=== PATIENT | female | born 1970 | race Caucasian/White ===

== ENCOUNTER → 2016-10-24 | Outpatient (CLI) | payer BC ==
[~2016-10-24] MED LIST: ASPI-391 PO; DESOTAB2 PO; IBUP-103 PO; LEVO112T2 PO
== END | disposition home or self-care (01) ==
LOC: C.LAB1850 16:40
PROVIDERS: ATTEND Internal Medicine
DX: E03.9 Hypothyroidism, unspecified (principal)

== ENCOUNTER → 2016-12-24 | Outpatient (CLI) | payer BC ==
--- NOTE | 2016-12-25 13:16 | MAMMOGRAPHY REPORT ---
BILATERAL DIGITAL SCREENING MAMMOGRAM TOMOSYNTHESIS WITH CAD: 12/24/2016 CLINICAL HISTORY: Routine screening. Patient has no complaints. TECHNIQUE: Breast tomosynthesis in addition to standard 2D mammography was performed. Current study was also evaluated with a Computer Aided Detection (CAD) system. COMPARISON: Comparison is made to exam dated: 01/25/2008. BREAST COMPOSITION: There are scattered areas of fibroglandular density in both breasts. FINDINGS: There is a stable circumscribed 14 mm mass in the lower inner quadrant of the right breast , that is unchanged in size dating back to the 48 20,008 mammogram, therefore likely benign. No new suspicious mass, architectural distortion or cluster of microcalcifications is seen. IMPRESSION: ACR BI-RADS CATEGORY 1: NEGATIVE There is no mammographic evidence of malignancy. A 1 year screening mammogram is recommended. The p atient will receive written notification of the results. Approximately 10% of breast cancers are not detected with mammography. A negative mammographic repor t should not delay biopsy if a clinically suggestive mass is present. Ofelia Johnson M.D. ay/:12/24/2016 15:28:51 Forensic Audit Expert: Kenya ANTHONY)([place]), [facility] letter sent: Normal 1/2 BI-RADS Code: ACR BI-RADS Category 1: Negative
== END | disposition home or self-care (01) ==
LOC: C.MAMM 14:34
PROVIDERS: ATTEND Internal Medicine
DX: Z12.31 Encounter for screening mammogram for malignant neoplasm of breast (principal)

== ENCOUNTER → 2017-08-24 | Outpatient (CLI) | payer BC | END | disposition home or self-care (01) | LOC: C.PAPS 13:50 | PROVIDERS: ATTEND Obstetrics & Gynecology | DX: Z01.419 Encounter for gynecological examination (general) (routine) without abnormal findings (principal) ==

== ENCOUNTER → 2017-12-31 | Outpatient (CLI) | payer OTHER ==
--- NOTE | 2017-12-31 15:15 | MAMMOGRAPHY REPORT ---
BILATERAL DIGITAL SCREENING MAMMOGRAM TOMOSYNTHESIS WITH CAD: 12/31/2017 CLINICAL HISTORY: Routine screening. Patient has no complaints. TECHNIQUE: Breast tomosynthesis in addition to standard 2D mammography was performed. Current study was also evaluated with a Computer Aided Detection (CAD) system. COMPARISON: Comparison is made to exams dated: 12/24/2016 mammogram - [facility] [address], 01/25/2008, and 01/25/2008. BREAST COMPOSITION: There are scattered areas of fibroglandular density in both breasts. FINDINGS: No suspicious masses, calcifications, or areas of architectural distortion are noted in ei ther breast. There has been no significant interval change compared to prior exams. Circumscribed be nign-appearing mass in the right lower inner quadrant is stable. A linear scar marker denotes a scar on the left superior breast. IMPRESSION: ACR BI-RADS CATEGORY 2: BENIGN There is no mammographic evidence of malignancy. A 1 year screening mammogram is recommended. The pa tient will receive written notification of the results. Approximately 10% of breast cancers are not detected with mammography. A negative mammographic report should not delay biopsy if a clinically suggestive mass is present. Hetal Chaves M.D. /:12/31/2017 07:38:30 System Architect: Kenya Lowery, [facility] [address] letter sent: Normal 1/2 BI-RADS Code: ACR BI-RADS Category 2: Benign
== END | disposition home or self-care (01) ==
LOC: C.MAMM 07:14
PROVIDERS: ATTEND Obstetrics & Gynecology
DX: Z12.31 Encounter for screening mammogram for malignant neoplasm of breast (principal)

== ENCOUNTER → 2018-01-21 | Outpatient (CLI) | payer OTHER | END | disposition home or self-care (01) | LOC: C.LABSPEC 12:09 | PROVIDERS: ATTEND Nurse Practitioner Adult Health | DX: R21 Rash and other nonspecific skin eruption (principal); L03.90 Cellulitis, unspecified ==

== ENCOUNTER 2019-11-15 17:22 | Inpatient (IN) ==
[2019-11-15] MEDS ORDERED: DiphenhydrAMINE HCL 50 MG/ML VIAL IV STA (19:49)
[2019-11-15 20:25] LABS: Basophils # (auto) 0.02 K/uL (0-0.2); Basophils % (auto) 0.2 %; Eosinophils # (auto) 0.13 K/uL (0-0.5); Eosinophils % (auto) 1.1 %; Hemoglobin 13.1 g/dL (12.0-16.0); Immature Granulocytes # (auto) 0.05 K/uL (0.00-0.02); Immature Granulocytes % (auto) 0.4 %; Lymphocytes # (auto) 3.32 K/uL (1.2-3.4); Lymphocytes % (auto) 29.3 %; Mean Corpuscular Hemoglobin 27.8 pg (25-34); Mean Corpuscular Hgb Conc 33.6 g/dL (32-36); Mean Corpuscular Volume 82.6 fL (80-100); Mean Platelet Volume 9.8 fL (7.4-10.4); Monocytes # (auto) 0.58 K/uL (0.11-0.59); Monocytes % (auto) 5.1 %; Neutrophils # (auto) 7.23 K/uL (1.4-6.5); Neutrophils % (auto) 63.9 %; Platelet Count 305 K/uL (130-400); RDW Coefficient of Variation 14.5 % (11.5-14.5); RDW Standard Deviation 43.6 fL (36.4-46.3); Red Blood Count 4.72 M/uL (4.2-5.4); White Blood Count 11.33 K/uL (4.8-10.8)
[2019-11-15 20:55] LABS: Albumin Level 3.4 gm/dl (3.4-5.0); BUN Creatinine Ratio 12.4 (10-20); Calcium 9.3 mg/dl (8.5-10.1); Creatinine Clr Calc Pharmacy 101.3 ml/min; Est GFR (African American) 108.3; Est GFR (Non-African American) 93.4; Potassium 3.6 mmol/L (3.5-5.1)
[2019-11-15 20:58] LABS: Albumin Globulin Ratio 0.8 (0.9-2); Bilirubin,Total 0.7 mg/dl (0.2-1); Globulin 4.4 gm/dl (2.5-4.0); Total Protein 7.8 gm/dl (6.4-8.2)
--- NOTE | 2019-11-15 21:49 | Emergency Department Note ---
ED Visit Note I assisted Dr. Turcios with the care of this patient . Resident Activity Tracking Resident Involvement: Resident Care Provided Care Provided: Adult ED : Leukocytosis Qualifiers: Leukocytosis type: unspecified Qualified Code(s): D72.829 - Elevated white blood cell count, unspecified
--- NOTE | 2019-11-15 21:58 | Ultrasound Report ---
BILIARY ULTRASOUND CLINICAL HISTORY: epigastric and RUQ pain COMPARISON STUDY: No previous studies for comparison. FINDINGS: The pancreas appears sonographically normal. The liver is of increased echogenicity, nonspe cific finding most often seen in hepatic steatosis. There is no right-sided hydronephrosis. The gallb ladder contains calculi and sludge. There is no gallbladder wall thickening. The technologist reports a positive sonographic Villalobos sign. The common bile duct is minimally dilated measuring 8 mm. If the re is clinical concern over the presence of acute cholecystitis, a nuclear medicine hepatobiliary eduardo dy could be obtained in follow-up to assess cystic duct patency IMPRESSION: 1. Gallstones and sludge. Technologist reports a positive sonographic Villalobos sign. 2. Mild dilatation of the common bile duct which measures 8 mm 3. Suspected hepatic steatosis 4. A nuclear medicine hepatobiliary study could be obtained in follow-up to assess cystic duct patenc y as deemed clinically necessary. ACT 112: Negative or not required by law. Electronically signed by: Benoit Baker M.D. 11/15/2019 9:57 PM
[2019-11-15] MEDS ORDERED: PIPERACILLIN/TAZOBACTAM 3.375 GM in DEXTROSE 5% 100 ML/100 ML BAG IV STA (22:02)
[2019-11-15] MEDS ORDERED: PIPERACILL/TAZOBAC CONSULT ACTIVE PRN (22:02)
[2019-11-15] MEDS ORDERED: KETOROLAC TROMETHAMINE 15 MG/ML VIAL IV STA (22:25)
--- NOTE | 2019-11-15 22:38 | Emergency Department Note ---
Entered by Linda Davila acting as a scribe for History of Present Illness General Chief complaint: GI Assessment Stated complaint: GALLBLADDER PROBLEMS Time Seen by Provider: 11/15/19 19:33 Source: patient History of Present Illness Onset (ago): week(s) (5-6) Location: abdomen Pain Consistency: + other (episodes) Maximum Pain Intensity: 0 Quality: + other (gallbladder attacks) Associated symptoms: + denies other symptoms (lightheadedness, constipation, difficulty urinating), + headaches and + other (generalized itching, abdominal pain, diarrhea); no fever/chills The patient is a 49 year old female who presents to the Emergency Room with complaints of episodes of gallbladder attacks beginning 5-6 weeks ago. The patient reports approximately 6 attacks and notes the most recent occurred 2 days ago. The patient states the attacks start 2 hours after eating. She reports burning and abdominal pain followed by light colored diarrhea. The patient denies any pain currently, but reports generalized itching. She reports a slight headache. She denies lightheadedness, fever, chills, constipation, and difficulty urinating. She states she has been taking ibuprofen for the pain. She reports a history of hypothyroidism. Home Medications Home Medications Medication Instructions Recorded Confirmed Type desogestrel 0.15 mg-ethinyl 1 tab PO DAILY #84 tab 10/13/19 11/15/19 Rx estradiol 0.03 mg tablet levothyroxine 200 mcg tablet 200 mcg PO DAILY #90 tab 11/11/19 11/15/19 Rx Allergies Allergy/AdvReac Type Severity Reaction Status Date / Time adhesive Allergy Unknown RED SKIN Verified 11/15/19 22:28 Sulfa (Sulfonamide Allergy Unknown ITCHY RASH Verified 11/15/19 22:28 Antibiotics) Past Med/Surg History Medical History Dysmetabolic syndrome X (Acute) History of anemia (Acute) Hypothyroidism (Acute) Mitral regurgitation (Acute) Obesity (Acute) Palpitations (Acute) Submucous leiomyoma of uterus (Acute) Syncope and collapse (Acute) Surgical History S/P section S/P loop electrosurgical excision procedure S/P tonsillectomy Family History Father Lung cancer Grandmother Ovarian cancer Social History Preferred Language: Palestinian Communication Ability: Effective Visual Impairment: No Limitations Hearing Ability: Normal Timber Surveyor Required: No Beliefs That Will Affect Care: None marital status: Current Living Situation: Significant Other Other Information That Helps Us Care for You: No Feels Safe at Home: Yes Safety Concerns: Feels Safe At This Time Smoking Status: Never smoker Second Hand Exposure: No ; Hx Alcohol Use: No Hx Substance Use: No Seatbelt Use: always Review of Systems See HPI for pertinent positives & negatives. and A total of 10 systems reviewed and were otherwise negative Physical Exam Vital Signs Vital Signs - 24 hr 11/15/19 17:31 11/15/19 20:00 11/15/19 20:30 Temperature 37 C Temperature Source Oral Pulse Rate 90 80 Pulse Rate [Apical] 73 Pulse Rate from SpO2 Sensor Pulse Rhythm Regular Pulse Strength Normal Respiratory Rate 20 14 Respiratory Effort / Characteristics Non-Labored Spontaneous Non-Labored Spontaneous Respiratory Depth Normal Normal Respiratory Pattern Regular Regular Blood Pressure 192/124 H Blood Pressure [Right Arm] 152/117 H Blood Pressure Mean 146 Blood Pressure Mean [Right Arm] 128 Blood Pressure Position Sitting Pulse Oximetry 100 99 100 Oxygen Delivery Method Room Air Room Air Room Air Sepsis Recent Fever Within 48 Hours No Sepsis Action Taken by Nursing No Action Required 11/15/19 20:31 11/15/19 20:35 11/15/19 21:00 Temperature Temperature Source Pulse Rate 93 H 87 79 Pulse Rate [Apical] Pulse Rate from SpO2 Sensor 94 H 87 79 Pulse Rhythm Pulse Strength Respiratory Rate 34 H 28 H 15 Respiratory Effort / Characteristics Respiratory Depth Respiratory Pattern Blood Pressure 152/117 H 179/113 H Blood Pressure [Right Arm] Blood Pressure Mean 123 124 Blood Pressure Mean [Right Arm] Blood Pressure Position Pulse Oximetry 100 97 100 Oxygen Delivery Method Sepsis Recent Fever Within 48 Hours Sepsis Action Taken by Nursing 11/15/19 21:01 11/15/19 22:02 Temperature Temperature Source Pulse Rate 77 Pulse Rate [Apical] Pulse Rate from SpO2 Sensor 77 79 Pulse Rhythm Pulse Strength Respiratory Rate 16 18 Respiratory Effort / Characteristics Respiratory Depth Respiratory Pattern Blood Pressure 165/95 H Blood Pressure [Right Arm] Blood Pressure Mean 113 Blood Pressure Mean [Right Arm] Blood Pressure Position Pulse Oximetry 100 98 Oxygen Delivery Method Sepsis Recent Fever Within 48 Hours Sepsis Action Taken by Nursing GENERAL: Patient is in no acute distress. HEENT: No acute trauma, normocephalic atraumatic, mucous membranes moist, no nasal congestion, no scleral icterus. NECK: No stridor, no adenopathy, no meningismus, trachea is midline. LUNGS: Clear to auscultation bilaterally, no wheeze, no rhonchi, breath sounds equal. HEART: Without murmurs gallops or rubs, regular rate and rhythm. ABDOMEN: Soft, nontender, bowel sounds positive, no hernias, no peritonitis. EXTREMITIES: No cyanosis or edema, full range of motion of all the joints without pain or difficulty, no signs for acute trauma. NEUROLOGIC: Oriented x 3, no acute motor or sensory deficits, no focal weakness. SKIN: Slight yellowing to the skin. No rash or diaphoresis. Course Course 1929: Past medical records reviewed. The patient was evaluated in room B05 by the resident under my supervision. A complete history and physical exam was performed. 1999: Past medical records reviewed. The patient was evaluated in room B05 by me. A complete history and physical exam was performed. 2229: Upon reevaluation, I discussed findings and results with the patient. She verbalized agreement of the treatment plan. I spoke with Dr. Gomez of the [facility] Hospitalist Service. The patient will be evaluated for further management and care. Administered Medications Famotidine 20 mg/ Syringe 5 mls @ 2.5 mls/min IV BID ALVERTO Stop: 12/15/19 23:25 Last Admin: 11/16/19 00:01 Dose: 2.5 mls/min Documented by: [id number] Lactated Ringer's (Lr) 1,000 mls @ 125 mls/hr IV .Q8H ALVERTO Stop: 12/15/19 23:25 Last Admin: 11/15/19 23:57 Dose: 125 mls/hr Documented by: [id number] Discontinued Medications Diphenhydramine HCl (Benadryl) 25 mg IV NOW STA Stop: 11/15/19 19:50 Last Admin: 11/15/19 20:14 Dose: 25 mg Documented by: [id number] Piperacillin Sod/Tazobactam (Sod 3.375 gm/ Dextrose) 100 ml in 115 mls @ 230 mls/hr IV NOW STA Stop: 01/28/20 22:31 Last Infusion: 11/15/19 22:50 Dose: 0 mls/hr Documented by: [id number] Admin: 11/15/19 22:18 Dose: 230 mls/hr Documented by: [id number] Ketorolac Tromethamine (Toradol) 15 mg IV NOW STA Stop: 11/15/19 22:26 Last Admin: 11/15/19 22:50 Dose: 15 mg Documented by: [id number] Medical Decision Making Differential Diagnosis Differential diagnosis:biliary colic, elevated bilirubin, pancreatitis, renal or liver failure, allergic reaction, electrolyte imbalance, dehydration Medical Records Attestation: I reviewed the patient's medical records. Home Medications Current Medication List: was personally reviewed by me Laboratory Data Attestation: I reviewed the patient's lab results. Result diagrams: 11/15/19 20:06 11/15/19 20:06 Lab Results 11/15/19 11/15/19 Range/Units 20:06 20:06 WBC 11.33 H (4.8-10.8) K/uL RBC 4.72 (4.2-5.4) M/uL Hgb 13.1 (12.0-16.0) g/dL Hct 39.0 (37-47) % MCV 82.6 (80-100) fL MCH 27.8 (25-34) pg MCHC 33.6 (32-36) g/dL RDW Std Deviation 43.6 (36.4-46.3) fL RDW Coeff of George 14.5 (11.5-14.5) % Plt Count 305 (130-400) K/uL MPV 9.8 (7.4-10.4) fL Immature Gran % (Auto) 0.4 % Neut % (Auto) 63.9 % Lymph % (Auto) 29.3 % Prairie % (Auto) 5.1 % Eos % (Auto) 1.1 % Baso % (Auto) 0.2 % Immature Gran # (Auto) 0.05 H (0.00-0.02) K/uL Neut # (Auto) 7.23 H (1.4-6.5) K/uL Lymph # (Auto) 3.32 (1.2-3.4) K/uL Prairie # (Auto) 0.58 (0.11-0.59) K/uL Eos # (Auto) 0.13 (0-0.5) K/uL Baso # (Auto) 0.02 (0-0.2) K/uL Sodium 136 (136-145) mmol/L Potassium 3.6 (3.5-5.1) mmol/L Chloride 105 (98-107) mmol/L Carbon Dioxide 24 (21-32) mmol/L Anion Gap 7.0 (3-11) BUN 9 (7-18) mg/dl Creatinine 0.76 (0.6-1.2) mg/dl Est Cr Clr Drug Dosing 101.3 ml/min Est GFR ( Amer) 108.3 Est GFR (Non-Af Amer) 93.4 BUN/Creatinine Ratio 12.4 (10-20) Glucose 104 H (70-99) mg/dl Calcium 9.3 (8.5-10.1) mg/dl Total Bilirubin 0.7 (0.2-1) mg/dl AST 159 H (15-37) U/L ALT 187 H (12-78) U/L Alkaline Phosphatase 190 H (45-117) U/L Total Protein 7.8 (6.4-8.2) gm/dl Albumin 3.4 (3.4-5.0) gm/dl Globulin 4.4 H (2.5-4.0) gm/dl Albumin/Globulin Ratio 0.8 L (0.9-2) Lipase 106 (73-393) U/L Imaging Data Radiologist's Impression: Radiology results as stated below per my review and the radiologist's interpretation: BILIARY ULTRASOUND CLINICAL HISTORY: epigastric and RUQ pain COMPARISON STUDY: No previous studies for comparison. FINDINGS: The pancreas appears sonographically normal. The liver is of increased echogenicity, nonspecific finding most often seen in hepatic steatosis. There is no right-sided hydronephrosis. The gallbladder contains calculi and sludge. There is no gallbladder wall thickening. The technologist reports a positive sonographic Villalobos sign. The common bile duct is minimally dilated measuring 8 mm. If there is clinical concern over the presence of acute cholecystitis, a nuclear medicine hepatobiliary study could be obtained in follow-up to assess cystic duct patency IMPRESSION: 1. Gallstones and sludge. Technologist reports a positive sonographic Villalobos sign. 2. Mild dilatation of the common bile duct which measures 8 mm 3. Suspected hepatic steatosis 4. A nuclear medicine hepatobiliary study could be obtained in follow-up to assess cystic duct patency as deemed clinically necessary. ACT 112: Negative or not required by law. Electronically signed by: Benoit Baker M.D. 11/15/2019 9:57 PM Blood Pressure Blood Pressure Findings: Elevated blood pressure Blood Pressure Disposition: further management by hospitalist MDM Narrative There is a mild leukocytosis, this could be consistent with infection. Patient has a normal hemoglobin. There is a normal platelet count. No significant electrolyte abnormality or kidney failure. Liver enzyme elevations were noted although, the bilirubin was normal. No evidence for pancreatitis. Gallbladder ultrasound shows gallstones and a mildly dilated common bile duct. On exam, there was no significant abdominal pain. The patient was not febrile or toxic. The patient presents with itching and some intermittent abdominal pain with eating over the last few weeks. Work-up does show liver enzyme elevation, gallstones and a common bile duct dilatation. I do think a hospital stay is warranted. Patient is likely going to require a cholecystectomy, possibly an ERCP. The patient did receive IV Zosyn as antibiotic coverage. She was given IV Benadryl for itching, IV Toradol for pain. Case management has been involved. Patient is aware of all her findings, the hospitalist was consulted. Impression & Plan Biliary colic, Liver enzyme elevation, Itching, Leukocytosis Discharge Plan Visit Data *Final* Discharge Date/Time: 11/15/19 23:08 Chief Complaint: GI Assessment Stated Complaint: GALLBLADDER PROBLEMS ED Provider: Cain Turcios ED Midlevel Provider: Abhishek Alejandro Discharge Problem: Biliary colic, Liver enzyme elevation, Itching, Leukocytosis Patient Disposition: Being Evaluated by Hospitalist Discharge Instructions Interventions: ED Discharge Assessment Last Done: 11/15/19 23:08 Discharge Problem: Leukocytosis Qualifiers: Leukocytosis type: unspecified Qualified Code(s): D72.829 - Elevated white bloo d cell count, unspecified The madiibdre's documentation has been prepared under my direction and personally reviewed by me in its entirety. I confirm that the note above accurately reflects all work, treatment, procedures, and medical decision making performed by me.
--- NOTE | 2019-11-15 23:20 | History & Physical Report ---
Date of Service November 15, 2019 Assessment & Plan (1) Biliary colic: Obs GMF Pain and nausea control IV Zosyn LR @125 Surgery consult MRCP DVT prophylaxis = SCDs and Lovenox. (2) Cholelithiasis: Symptomatic. (3) Hypothyroidism: Continue Levothyroxine. History of Present Illness 49 y/o female presented to the ED with post-prandial epigastric to right upper quadrant pain and associated nausea. She reports having had 6 similar episodes over the past 5 weeks. No F/C, chest pain, SOB, cough, dysuria, or vomiting. She does report intermittent diarrhea as well. Primary Care Provider: Tien Hagen MD Allergies Allergy/AdvReac Type Severity Reaction Status Date / Time adhesive Allergy Unknown RED SKIN Verified 11/15/19 22:28 Sulfa (Sulfonamide Allergy Unknown ITCHY RASH Verified 11/15/19 22:28 Antibiotics) Home Medications Home Medications Medication Instructions Recorded Confirmed Type desogestrel 0.15 mg-ethinyl 1 tab PO DAILY #84 tab 10/13/19 11/15/19 Rx estradiol 0.03 mg tablet levothyroxine 200 mcg tablet 200 mcg PO DAILY #90 tab 11/11/19 11/15/19 Rx Past Med/Surg History Medical History Dysmetabolic syndrome X (Acute) History of anemia (Acute) Hypothyroidism (Acute) Mitral regurgitation (Acute) Obesity (Acute) Palpitations (Acute) Submucous leiomyoma of uterus (Acute) Syncope and collapse (Acute) Surgical History S/P section S/P loop electrosurgical excision procedure S/P tonsillectomy Family History Father Lung cancer Grandmother Ovarian cancer Social History Preferred Language: Vincentian Communication Ability: Effective Visual Impairment: No Limitations Hearing Ability: Normal Dextrine Mixer Required: No Beliefs That Will Affect Care: None marital status: Current Living Situation: Significant Other Other Information That Helps Us Care for You: No Feels Safe at Home: Yes Safety Concerns: Feels Safe At This Time Smoking Status: Never smoker Second Hand Exposure: No ; Hx Alcohol Use: No Hx Substance Use: No Seatbelt Use: always Review of Systems Review of Systems: All systems reviewed & are unremarkable except as noted in HPI & below Physical Exam Physical Exam: General- adult female, NAD Head- atraumatic Eyes- PERRL, EOMI, anicteric ENT- oropharynx clear Neck- supple, no JVD, no adenopathy, no thyromegaly. Lungs- CTA b/l no R/R/W. Heart- regular rhythm; no murmur, no gallop, no rub appreciated Abdomen- normal bowel sounds, soft, Mild tenderness to palpation RUQ. Extremities- no pretibial edema, no calf tenderness; peripheral pulses intact Neuro- alert, oriented x 3; PERRL, EOMI; business unit manager II-XII grossly intact, non-focal. Skin- warm & dry Results & Data Vital Signs (Past 12 Hours) Vital Signs Temp Pulse Pulse Resp BP BP Pulse Ox 11/15/19 23:08 80 18 174/118 H 95 11/15/19 22:02 18 165/95 H 98 11/15/19 21:01 77 16 100 11/15/19 21:00 79 15 179/113 H 100 11/15/19 20:35 87 28 H 97 11/15/19 20:31 93 H 34 H 152/117 H 100 11/15/19 20:30 73 14 152/117 H 100 11/15/19 20:00 80 99 11/15/19 17:31 37 C 90 20 192/124 H 100 Laboratory Results Laboratory Results WBC 11.33 K/uL (4.8-10.8) H 11/15/19 20:06 RBC 4.72 M/uL (4.2-5.4) 11/15/19 20:06 Hgb 13.1 g/dL (12.0-16.0) 11/15/19 20:06 Hct 39.0 % (37-47) 11/15/19 20:06 MCV 82.6 fL (80-100) 11/15/19 20:06 MCH 27.8 pg (25-34) 11/15/19 20:06 MCHC 33.6 g/dL (32-36) 11/15/19 20:06 RDW Std Deviation 43.6 fL (36.4-46.3) 11/15/19 20:06 RDW Coeff of George 14.5 % (11.5-14.5) 11/15/19 20:06 Plt Count 305 K/uL (130-400) 11/15/19 20:06 MPV 9.8 fL (7.4-10.4) 11/15/19 20:06 Immature Gran % (Auto) 0.4 % 11/15/19 20:06 Neut % (Auto) 63.9 % 11/15/19 20:06 Lymph % (Auto) 29.3 % 11/15/19 20:06 Johnson % (Auto) 5.1 % 11/15/19 20:06 Eos % (Auto) 1.1 % 11/15/19 20:06 Baso % (Auto) 0.2 % 11/15/19 20:06 Immature Gran # (Auto) 0.05 K/uL (0.00-0.02) H 11/15/19 20:06 Neut # (Auto) 7.23 K/uL (1.4-6.5) H 11/15/19 20:06 Lymph # (Auto) 3.32 K/uL (1.2-3.4) 11/15/19 20:06 Johnson # (Auto) 0.58 K/uL (0.11-0.59) 11/15/19 20:06 Eos # (Auto) 0.13 K/uL (0-0.5) 11/15/19 20:06 Baso # (Auto) 0.02 K/uL (0-0.2) 11/15/19 20:06 Sodium 136 mmol/L (136-145) 11/15/19 20:06 Potassium 3.6 mmol/L (3.5-5.1) 11/15/19 20:06 Chloride 105 mmol/L (98-107) 11/15/19 20:06 Carbon Dioxide 24 mmol/L (21-32) 11/15/19 20:06 Anion Gap 7.0 (3-11) 11/15/19 20:06 BUN 9 mg/dl (7-18) 11/15/19 20:06 Creatinine 0.76 mg/dl (0.6-1.2) 11/15/19 20:06 Est Cr Clr Drug Dosing 101.3 ml/min 11/15/19 20:06 Est GFR ( Amer) 108.3 11/15/19 20:06 Est GFR (Non-Af Amer) 93.4 11/15/19 20:06 BUN/Creatinine Ratio 12.4 (10-20) 11/15/19 20:06 Glucose 104 mg/dl (70-99) H 11/15/19 20:06 Calcium 9.3 mg/dl (8.5-10.1) 11/15/19 20:06 Total Bilirubin 0.7 mg/dl (0.2-1) 11/15/19 20:06 AST 159 U/L (15-37) H 11/15/19 20:06 ALT 187 U/L (12-78) H 11/15/19 20:06 Alkaline Phosphatase 190 U/L (45-117) H 11/15/19 20:06 Total Protein 7.8 gm/dl (6.4-8.2) 11/15/19 20:06 Albumin 3.4 gm/dl (3.4-5.0) 11/15/19 20:06 Globulin 4.4 gm/dl (2.5-4.0) H 11/15/19 20:06 Albumin/Globulin Ratio 0.8 (0.9-2) L 11/15/19 20:06 Lipase 106 U/L (73-393) 11/15/19 20:06 Diagnostic Findings [facility], [place] [phone] Ultrasound Report Patient: AJ TAVERASdmit Date: 11/15/19 MR#: [id number]: Laurie DALY Acct ID:[id number]: Date: 1970[facility] Zip: [place] [address] Age: 49Location: ED Sex: F Room/Bed: Att Phy:Diagnosis: GALLBLADDER PROBLEMS Loraine Phy: RV. Rakan, MDService Date: 11/15/19 Fam Phy:Interpreting Phy: Benoit Baker MD Admit Phy: Ordering Phy: Abhishek Alejandro MD cc: ~ BILIARY ULTRASOUND CLINICAL HISTORY: epigastric and RUQ pain COMPARISON STUDY: No previous studies for comparison. FINDINGS: The pancreas appears sonographically normal. The liver is of increased echogenicity, nonspecific finding most often seen in hepatic steatosis. There is no right-sided hydronephrosis. The gallbladder contains calculi and sludge. There is no gallbladder wall thickening. The technologist reports a positive sonographic Villalobos sign. The common bile duct is minimally dilated measuring 8 mm. If there is clinical concern over the presence of acute cholecystitis, a nuclear medicine hepatobiliary study could be obtained in follow-up to assess cystic duct patency IMPRESSION: 1. Gallstones and sludge. Technologist reports a positive sonographic Villalobos sign. 2. Mild dilatation of the common bile duct which measures 8 mm 3. Suspected hepatic steatosis 4. A nuclear medicine hepatobiliary study could be obtained in follow-up to assess cystic duct patency as deemed clinically necessary. ACT 112: Negative or not required by law. Electronically signed by: Benoit Baker M.D. 11/15/2019 9:57 PM Dictated: 11/15/192154 Transcribed: 11/15/192154 Code Status & VTE Plan VTE Prophylaxis Plan VTE Prophylaxis will be ordered: Yes PG Care Time/CCT Total # of Minutes Spent Total Time Spent: 60 Total Time Spent with Patient: Total time spent is greater than 50% in coordination of care (as documented) at patient's floor/unit and/or counseling patient: Coding Level of Care Code 10233 OBS Care - Level 3 Diagnoses Biliary colic K80.50 Cholelithiasis K80.20 Hypothyroidism E03.9
[2019-11-15] MEDS ORDERED: HydrALAZINE HCL 20 MG/ML VIAL IV PRN (23:26)
[2019-11-15] MEDS ORDERED: MoRPHine SULFATE 4 MG/ML 1 ML CARP\\VIAL IV PRN (23:26)
[2019-11-15] MEDS ORDERED: MoRPHine SULFATE 2 MG/ML CARP IV PRN (23:26)
[2019-11-15] MEDS: LACTATED RINGER'S 1,000 ML IV SCH (23:57)
[2019-11-16] MEDS: FAMOTIDINE 20 MG in SYRINGE 3 ML IV SCH ×2 (00:01→09:38)
[2019-11-16] MEDS: PIPERACILLIN/TAZOBACTAM 4.5 GM in DEXTROSE 5% 100 ML IV SCH ×2 (03:05→09:58)
[2019-11-16] MEDS: LEVOTHYROXINE SODIUM 200 MCG TABLET PO SCH (05:25)
[2019-11-16] MEDS: KETOROLAC TROMETHAMINE 15 MG/ML VIAL IV PRN (05:27)
[2019-11-16 05:47] LABS: Hematocrit (blood only) 33.7 % (37-47); Hemoglobin 11.3 g/dL (12.0-16.0); Mean Corpuscular Hemoglobin 27.4 pg (25-34); Mean Corpuscular Hgb Conc 33.5 g/dL (32-36); Mean Corpuscular Volume 81.6 fL (80-100); Mean Platelet Volume 9.9 fL (7.4-10.4); Platelet Count 226 K/uL (130-400); RDW Coefficient of Variation 14.6 % (11.5-14.5); RDW Standard Deviation 43.8 fL (36.4-46.3); Red Blood Count 4.13 M/uL (4.2-5.4)
[2019-11-16 06:28] LABS: Albumin Level 2.6 gm/dl (3.4-5.0); BUN Creatinine Ratio 10.6 (10-20); Bilirubin Direct 0.1 mg/dl (0-0.2); Calcium 8.8 mg/dl (8.5-10.1); Creatinine Clr Calc Pharmacy 88.4 ml/min; Est GFR (African American) 93.2; Est GFR (Non-African American) 80.4; Potassium 3.6 mmol/L (3.5-5.1)
[2019-11-16 06:37] LABS: Albumin Globulin Ratio 0.7 (0.9-2); Bilirubin,Total 0.7 mg/dl (0.2-1); Globulin 3.6 gm/dl (2.5-4.0); Total Protein 6.2 gm/dl (6.4-8.2)
--- NOTE | 2019-11-16 07:22 | Magnetic Resonance Report ---
MR MRCP HISTORY: 49 years-old Female Dilated CBD, cholelithiasis acute right upper quadrant abdominal pain COMPARISON: Right upper quadrant abdominal ultrasound 11/15/2019 TECHNIQUE: MRCP was obtained without the use of IV contrast according to institutional protocol FINDINGS: Risk Lead localizer images demonstrate no gross abnormality of the utilized pelvis or lower chest. Lung b ases appear clear. The liver is enlarged. Spleen, pancreas and adrenal glands are unremarkable. Unrem arkable kidneys without hydronephrosis. Aorta and IVC are unremarkable. No adenopathy or bowel dilati on. No abdominal free fluid. Cholelithiasis with gallstones measuring up to 1.6 cm. Tiny foci of sludge versus gallstones are note d within the gallbladder neck. Mild distention of the gallbladder measures up to 6.0 cm in length. Th ere is no intrahepatic or extrahepatic biliary ductal dilation. No pericholecystic fluid. Common bile duct is normal measuring up to 4 mm. No pancreatic ductal dilation or evidence of pancreatic divisum . No definite choledocholithiasis. IMPRESSION: 1. Cholelithiasis without evidence of acute cholecystitis or choledocholithiasis. 2. No biliary ductal dilation. ACT 112: Negative or not required by law. The above report was generated using voice recognition software. It may contain grammatical, syntax o r spelling errors. Electronically signed by: Bashir Alarcon M.D. 11/16/2019 7:20 AM
[2019-11-16] MEDS ORDERED: ENOXAPARIN INJ 40 MG/0.4 ML SYR SQ SCH (08:00)
--- NOTE | 2019-11-16 09:16 | Surgery Consultation ---
Date of Consultation November 16, 2019 Assessment & Plan (1) Cholelithiasis: No evidence of acute cholecystitis but has had several attacks and large gallstone. Mild AST/ALT elevations, MRCP was negative. She would like to proceed with laparoscopic cholecystectomy, will plan for possible cholangiogram or liver biopsy depending on LFT trend. Plan for OR , will repeat AM labs. Seen with Dr. Heredia. as above. has had about 5 post prandial "attacks" which are c/w gallbladder etiology. would prefer to have this admission. discussed possible liver bx as well. We discussed bleeding, infection, injury to a bile duct or bile leaks, DVT, PE, CA, CVA, injury to other organs such as small bowel liver etc. Following all this I answered her questions. We will plan on laparoscopic cholecystectomy possible liver biopsy tomorrow. History of Present Illness Attending Physician: Sampson Robertson Jazielantonilincoln History of Present Illness 49 y/o female with epigastric pain ("burning") Thursday, has had several attacks in the past few weeks. She had generalized itching yesterday and was referred to the ED. Some nausea, no vomiting. She feels better this morning. Allergies Allergy/AdvReac Type Severity Reaction Status Date / Time adhesive Allergy Unknown RED SKIN Verified 11/15/19 22:28 Sulfa (Sulfonamide Allergy Unknown ITCHY RASH Verified 11/15/19 22:28 Antibiotics) Home Medications Home Medications Medication Instructions Recorded Confirmed Type desogestrel 0.15 mg-ethinyl 1 tab PO DAILY #84 tab 10/13/19 11/15/19 Rx estradiol 0.03 mg tablet levothyroxine 200 mcg tablet 200 mcg PO DAILY #90 tab 11/11/19 11/15/19 Rx Patient History Medical History Dysmetabolic syndrome X (Acute) History of anemia (Acute) Hypothyroidism (Acute) Mitral regurgitation (Acute) Obesity (Acute) Palpitations (Acute) Submucous leiomyoma of uterus (Acute) Syncope and collapse (Acute) Surgical History S/P section S/P loop electrosurgical excision procedure S/P tonsillectomy Family History Father Lung cancer Grandmother Ovarian cancer Social History Preferred Language: [place] Communication Ability: Effective Visual Impairment: No Limitations Hearing Ability: Normal Composition Weatherboard Installer Required: No Beliefs That Will Affect Care: None marital status: Current Living Situation: Significant Other Other Information That Helps Us Care for You: No Feels Safe at Home: Yes Safety Concerns: Feels Safe At This Time Smoking Status: Never smoker Second Hand Exposure: No ; Hx Alcohol Use: No Hx Substance Use: No Seatbelt Use: always Review of Systems Constitutional: no fever, no chills and no anorexia Gastrointestinal: + abdominal pain, + heartburn and + nausea; no vomiting and no diarrhea/loose stools Physical Exam Constitutional: WD/WN, vitals as above Respiratory: normal respiratory effort Cardiovascular: RRR, no murmur, no edema Gastrointestinal (Abdomen): Inspection/Auscultation: abdomen not distended Percussion/Palpation: abdomen soft; abdomen nontender Results & Data Vital Signs (Past 12 Hours) Vital Signs Temp Pulse Pulse Resp BP BP Pulse Ox 11/16/19 07:55 36.8 C 67 16 111/68 96 11/15/19 23:38 37 C 76 18 152/81 H 95 11/15/19 23:08 80 18 174/118 H 95 11/15/19 22:02 18 165/95 H 98 PG Care Time/CCT Total # of Minutes Spent Total Time Spent with Patient: Total time spent is greater than 50% in coordination of care (as documented) at patient's floor/unit and/or counseling patient: Coding Level of Care Code 43541 Inpt Consult Level 4 Diagnoses Cholelithiasis K80.20
[2019-11-16] MEDS: LACTATED RINGER'S 1,000 ML IV SCH ×2 (09:20→16:59)
[2019-11-16] MEDS: PANTOprazole 40 MG TAB PO SCH (10:53)
--- NOTE | 2019-11-16 15:24 | Hospitalist Progress Note ---
Date of Service November 16, 2019 Assessment & Plan (1) Cholelithiasis: - Gallbladder US with gallstones and sludge and mild dilatation of CBD at 8 mm. - MRCP with cholelithiasis, no evidence of cholecystitis or choledocolithiasis. - General surgery consulted, plan for lap carlyn and possibly liver biopsy on 11/17/19. - Low fat diet, NPO after midnight; LR at 125 cc/hr. - Toradol and Morphine prn pain. - Can d/c Zosyn -- no evidence of cholangitis/other intra-abd infection. Pre-op abx per gen surg team. (2) Epigastric pain: - Pt. c/o epigastric pain -- possibly referred from gallbladder vs. related to gastric ulcer. - Started Protonix 40 mg PO daily. - Recommend f/u with GI to discuss completing EGD. (3) Liver enzyme elevation: - Elevated AST, ALT and Alk phos on labs. - May require liver biopsy during lap carlyn on 11/17. - Gallbladder US showed hepatic steatosis. (4) Dysmetabolic syndrome X: - Encourage weight loss, healthy diet and exercise. (5) Hypothyroidism: - Continue Synthroid 200 mcg daily. - Most recent TSH was 6.46. (6) Obesity: - BMI 45.2 - Encourage weight loss and exercise. (7) Submucous leiomyoma of uterus: - Followed as outpatient. (8) Uses control: - Continue home medication. (9) DVT prophylaxis: - SCDs; holding Lovenox for procedure. Dispo: Med/surg; plan for lap carlyn on 11/17. Subjective Pt. reports she has pain in epigastric region -- pain has been intermittent over last month. Is increased with eating. Denies nausea/vomiting, constipation or diarrhea. Previous itching also resolved. Plan for cholecystectomy with possible liver biopsy on 11/17. Has questionable gastric vs. duodenal ulcer as well -- consider EGD in near future. Review of Systems Review of Systems: All systems reviewed & are unremarkable except as noted in HPI & below Constitutional: no fever, no chills, no fatigue, no weakness and no anorexia Respiratory: no cough, no dyspnea and no dyspnea on exertion Cardiovascular: no chest pain, no palpitations and no edema Gastrointestinal: + abdominal pain; no nausea, no vomiting, no constipation and no diarrhea/loose stools Genitourinary: no difficulty urinating Musculoskeletal: no back pain and no joint pain Integumentary: no non-healing lesions Physical Exam Physical Exam: General: Resting comfortably HEENT: NC/AT; PERRLA with EOMI; [place] conjunctiva, MMM. No erythema of posterior pharynx Neck: Supple and nontender Cardiac: RRR Lungs: CTA bilaterally Abdomen: Bowel normoactive X 4; TTP in epigastric region. Extremities: Warm. No edema present Neuro: No focal weakness Skin: No rash Results & Data Vital Signs (Past 12 Hours) Vital Signs Temp Pulse Resp BP Pulse Ox 11/16/19 14:58 36.6 C 75 17 151/88 H 97 11/16/19 07:55 36.8 C 67 16 111/68 96 Laboratory Results 11/16/19 11/16/19 11/15/19 Range/Units 04:59 04:59 20:06 WBC 9.00 (4.8-10.8) K/uL RBC 4.13 L (4.2-5.4) M/uL Hgb 11.3 L (12.0-16.0) g/dL Hct 33.7 L (37-47) % MCV 81.6 (80-100) fL MCH 27.4 (25-34) pg MCHC 33.5 (32-36) g/dL RDW Std Deviation 43.8 (36.4-46.3) fL RDW Coeff of George 14.6 H (11.5-14.5) % Plt Count 226 (130-400) K/uL MPV 9.9 (7.4-10.4) fL Immature Gran % (Auto) % Neut % (Auto) % Lymph % (Auto) % Falls % (Auto) % Eos % (Auto) % Baso % (Auto) % Immature Gran # (Auto) (0.00-0.02) K/uL Neut # (Auto) (1.4-6.5) K/uL Lymph # (Auto) (1.2-3.4) K/uL Falls # (Auto) (0.11-0.59) K/uL Eos # (Auto) (0-0.5) K/uL Baso # (Auto) (0-0.2) K/uL Sodium 139 136 (136-145) mmol/L Potassium 3.6 3.6 (3.5-5.1) mmol/L Chloride 108 H 105 (98-107) mmol/L Carbon Dioxide 24 24 (21-32) mmol/L Anion Gap 7.0 7.0 (3-11) BUN 9 9 (7-18) mg/dl Creatinine 0.86 0.76 (0.6-1.2) mg/dl Est Cr Clr Drug Dosing 88.4 101.3 ml/min Est GFR ( Amer) 93.2 108.3 Est GFR (Non-Af Amer) 80.4 93.4 BUN/Creatinine Ratio 10.6 12.4 (10-20) Glucose 117 H 104 H (70-99) mg/dl Calcium 8.8 9.3 (8.5-10.1) mg/dl Total Bilirubin 0.7 0.7 (0.2-1) mg/dl Direct Bilirubin 0.1 (0-0.2) mg/dl AST 114 H 159 H (15-37) U/L ALT 144 H 187 H (12-78) U/L Alkaline Phosphatase 141 H 190 H (45-117) U/L Total Protein 6.2 L D 7.8 (6.4-8.2) gm/dl Albumin 2.6 L 3.4 (3.4-5.0) gm/dl Globulin 3.6 4.4 H (2.5-4.0) gm/dl Albumin/Globulin Ratio 0.7 L 0.8 L (0.9-2) Lipase 106 (73-393) U/L 11/15/19 Range/Units 20:06 WBC 11.33 H (4.8-10.8) K/uL RBC 4.72 (4.2-5.4) M/uL Hgb 13.1 (12.0-16.0) g/dL Hct 39.0 (37-47) % MCV 82.6 (80-100) fL MCH 27.8 (25-34) pg MCHC 33.6 (32-36) g/dL RDW Std Deviation 43.6 (36.4-46.3) fL RDW Coeff of George 14.5 (11.5-14.5) % Plt Count 305 (130-400) K/uL MPV 9.8 (7.4-10.4) fL Immature Gran % (Auto) 0.4 % Neut % (Auto) 63.9 % Lymph % (Auto) 29.3 % Falls % (Auto) 5.1 % Eos % (Auto) 1.1 % Baso % (Auto) 0.2 % Immature Gran # (Auto) 0.05 H (0.00-0.02) K/uL Neut # (Auto) 7.23 H (1.4-6.5) K/uL Lymph # (Auto) 3.32 (1.2-3.4) K/uL Falls # (Auto) 0.58 (0.11-0.59) K/uL Eos # (Auto) 0.13 (0-0.5) K/uL Baso # (Auto) 0.02 (0-0.2) K/uL Sodium (136-145) mmol/L Potassium (3.5-5.1) mmol/L Chloride (98-107) mmol/L Carbon Dioxide (21-32) mmol/L Anion Gap (3-11) BUN (7-18) mg/dl Creatinine (0.6-1.2) mg/dl Est Cr Clr Drug Dosing ml/min Est GFR ( Amer) Est GFR (Non-Af Amer) BUN/Creatinine Ratio (10-20) Glucose (70-99) mg/dl Calcium (8.5-10.1) mg/dl Total Bilirubin (0.2-1) mg/dl Direct Bilirubin (0-0.2) mg/dl AST (15-37) U/L ALT (12-78) U/L Alkaline Phosphatase (45-117) U/L Total Protein (6.4-8.2) gm/dl Albumin (3.4-5.0) gm/dl Globulin (2.5-4.0) gm/dl Albumin/Globulin Ratio (0.9-2) Lipase (73-393) U/L PG Care Time/CCT Total # of Minutes Spent Total Time Spent with Patient: Total time spent is greater than 50% in coordination of care (as documented) at patient's floor/unit and/or counseling patient: Coding Level of Care Code 73107 Subseq Hosp Care Lvl 3 Diagnoses Cholelithiasis K80.20 Epigastric pain R10.13 Liver enzyme elevation R74.8 Dysmetabolic syndrome X E88.81 Hypothyroidism E03.9 Obesity E66.9 Submucous leiomyoma of uterus D25.0 Uses control Z78.9 DVT prophylaxis Z29.9
--- NOTE | 2019-11-16 16:20 | Anesthesiology Consultation ---
Date of Service November 16, 2019 Assessment & Plan (1) Encounter for pre-operative examination: Chart Review Chart Review: Acceptable Risk for Surgery and Patient NOT seen in Pre Admission Testing Consults Requested none urine test is pending History Surgery Operation Date: 11/17/19 11:30 Proposed Procedures p Laparoscopic Cholecystectomy, Possible Cholangiogram, Possible Liver Biopsy - Sarwat Heredia, DO Height/Weight Height: 5 ft Weight: 104.9 kg Allergies Allergy/AdvReac Type Severity Reaction Status Date / Time adhesive Allergy Unknown RED SKIN Verified 11/15/19 22:28 Sulfa (Sulfonamide Allergy Unknown ITCHY RASH Verified 11/15/19 22:28 Antibiotics) Medications Home Medications Medication Instructions Recorded Confirmed Last Taken desogestrel 0.15 mg-ethinyl 1 tab PO DAILY #84 tab 10/13/19 11/15/19 Unknown estradiol 0.03 mg tablet levothyroxine 200 mcg tablet 200 mcg PO DAILY #90 tab 11/11/19 11/15/19 11/14/19 Active Medications Generic Name Dose Route Start Last Admin Trade Name Oswaldoq PRN Reason Stop Dose Admin Enoxaparin Sodium 40 mg 11/16/19 08:00 11/16/19 09:20 Lovenox SQ 12/16/19 07:59 40 mg Q24H ALVERTO Administration Lactated Ringer's 1,000 mls @ 125 mls/hr 11/15/19 23:26 11/16/19 09:20 Lr IV 12/15/19 23:25 125 mls/hr .Q8H ALVERTO Administration Ketorolac Tromethamine 15 mg 11/15/19 23:26 11/16/19 05:27 Toradol IV 11/20/19 23:25 15 mg Q6H PRN Administration Mild pain/fever Levothyroxine Sodium 200 mcg 11/16/19 06:30 11/16/19 05:25 Synthroid PO 12/16/19 06:29 200 mcg DAILYBB ALVERTO Administration Miscellaneous 1 ea 11/16/19 08:00 11/16/19 15:56 Order Awaiting Action N/A 12/16/19 07:59 Not Given QS ALVERTO Pantoprazole Sodium 40 mg 11/16/19 09:15 11/16/19 10:53 Protonix PO 11/19/19 09:01 40 mg QAM ALVERTO Administration Past Medical History Medical History Dysmetabolic syndrome X (Acute) History of anemia (Acute) Hypothyroidism (Acute) Mitral regurgitation (Acute) Obesity (Acute) Palpitations (Acute) Submucous leiomyoma of uterus (Acute) Syncope and collapse (Acute) Past Family History Family History Father Lung cancer Grandmother Ovarian cancer Past Surgical History Surgical History S/P section S/P loop electrosurgical excision procedure S/P tonsillectomy Social History Smoking Status: Never smoker Hx Alcohol Use: No Hx Substance Use: No substance use type: does not use Physical Exam Vital Signs Last Vital Signs Temp 36.6 C 11/16/19 14:58 Pulse 75 11/16/19 14:58 Resp 17 11/16/19 14:58 BP 151/88 H 11/16/19 14:58 Pulse Ox 97 11/16/19 14:58 Testing Laboratory Results 11/16/19 04:59 11/16/19 04:59 Electrocardiogram Date: 11/16/19 Findings: + NSR @ (09)
[2019-11-16 17:57] LABS: Pregnancy Test, Urine Negative (Negative)
--- NOTE | 2019-11-16 18:01 | Electrocardiogram Report ---
Test Reason : Blood Pressure : / mmHG Vent. Rate : 078 BPM Atrial Rate : 078 BPM P-R Int : 114 ms QRS Dur : 078 ms QT Int : 396 ms P-R-T Axes : 052 027 034 degrees QTc Int : 451 ms Normal sinus rhythm Normal ECG When compared with ECG of 21-JUL-2013 10:23, No significant change was found Confirmed by Amador Gleason ([id number]) on 11/16/2019 6:00:52 PM Referred By: REFERRED SELF Confirmed By:Dwight Gleason
[2019-11-17] MEDS: LACTATED RINGER'S 1,000 ML IV SCH ×3 (00:03→21:14)
[2019-11-17 05:28] LABS: Hematocrit (blood only) 35.9 % (37-47); Hemoglobin 11.9 g/dL (12.0-16.0); Mean Corpuscular Hemoglobin 27.5 pg (25-34); Mean Corpuscular Hgb Conc 33.1 g/dL (32-36); Mean Corpuscular Volume 83.1 fL (80-100); Mean Platelet Volume 9.9 fL (7.4-10.4); Platelet Count 243 K/uL (130-400); RDW Coefficient of Variation 14.6 % (11.5-14.5); RDW Standard Deviation 44.9 fL (36.4-46.3); Red Blood Count 4.32 M/uL (4.2-5.4); White Blood Count 8.74 K/uL (4.8-10.8)
[2019-11-17] MEDS: LEVOTHYROXINE SODIUM 200 MCG TABLET PO SCH (05:35)
[2019-11-17 06:00] LABS: Albumin Level 2.5 gm/dl (3.4-5.0); BUN Creatinine Ratio 12.2 (10-20); Bilirubin Direct 0.1 mg/dl (0-0.2); Calcium 8.6 mg/dl (8.5-10.1); Creatinine Clr Calc Pharmacy 93.9 ml/min; Est GFR (African American) 100.2; Est GFR (Non-African American) 86.5; Potassium 3.9 mmol/L (3.5-5.1)
[2019-11-17 06:02] LABS: Bilirubin,Total 0.5 mg/dl (0.2-1); Total Protein 6.1 gm/dl (6.4-8.2)
[2019-11-17] MEDS: PANTOprazole 40 MG TAB PO SCH (07:20)
[2019-11-17] MEDS ORDERED: LIDOCAINE HCL 2% 2 ML VIAL/AMP(20MG/ML) INFIL ONE (10:42)
[2019-11-17] MEDS ORDERED: ROCURONIUM BROMIDE 10 MG/ML 5 ML VIAL ONE (10:42)
[2019-11-17] MEDS ORDERED: PROPOFOL IV EMULSION 10 MG/ML 20 ML VIAL IV ONE (10:42)
[2019-11-17] MEDS ORDERED: fentaNYL citrate 100 MCG/2 ML VIAL ONE ×2 (10:42→12:29)
[2019-11-17] MEDS ORDERED: MIDAZOLAM HCL 1 MG/ML 2ML VIAL ONE (10:42)
[2019-11-17] MEDS ORDERED: ONDANSETRON INJ 2 MG/ML 2 ML VIAL ONE (10:42)
--- NOTE | 2019-11-17 11:18 | History & Physical Bridge Note ---
Date of Service November 17, 2019 History & Physical Bridge Note I have examined the patient, reviewed the History & Physical and in the interval since the performance of the History & Physical I have noted the following changes of clinical significance: no changes noted. discussed risks ( bleeding/infection/bile injury or leaks/injury to other organs/dvt/pe/mi/cva etc... questions answered. will proceed with lap carlyn and likely liver bx
[2019-11-17] MEDS ORDERED: LABETALOL HCL IV 5 MG/ML 20ML IV PRN (11:19)
[2019-11-17] MEDS ORDERED: PROMETHAZINE HCL 12.5 MG in SODIUM CHLORIDE 0.9% 50 ML IV PRN (11:19)
[2019-11-17] MEDS ORDERED: KETOROLAC 30 MG/ML VIAL IV PRN (11:19)
[2019-11-17] MEDS ORDERED: ONDANSETRON INJ 2 MG/ML 2 ML VIAL IV PRN (11:19)
[2019-11-17] MEDS ORDERED: ATROPINE SULFATE 0.1 MG/ML 10ML SYR IV PRN (11:19)
[2019-11-17] MEDS ORDERED: BUPIVACAINE/EPINEPHRINE 0.5% MPF 1:200,000 10 ML VIAL ONE (11:32)
--- NOTE | 2019-11-17 12:53 | Hospitalist Progress Note ---
Date of Service November 17, 2019 Assessment & Plan (1) Cholelithiasis: - Gallbladder US with gallstones and sludge and mild dilatation of CBD at 8 mm. - MRCP with cholelithiasis, no evidence of cholecystitis or choledocolithiasis. - General surgery consulted, plan for lap carlyn and possibly liver biopsy this afternoon. - NPO for procedure; LR at 125 cc/hr. - Toradol and Morphine prn pain. - D/c'ed Zosyn -- no evidence of cholangitis/other intra-abd infection. Pre-op abx per gen surg team. (2) Epigastric pain: - Pt. c/o epigastric pain -- possibly referred from gallbladder vs. related to gastric ulcer. - Started Protonix 40 mg PO daily. - Recommend f/u with GI to discuss completing EGD. (3) Liver enzyme elevation: - Elevated AST, ALT and Alk phos on labs. Remain elevated on AM lab but slowly improving. - May require liver biopsy during procedure this afternoon. - Gallbladder US showed hepatic steatosis. (4) Diarrhea: - Will send C. diff, stool cultures. - Imodium prn if negative. (5) Dysmetabolic syndrome X: - Encourage weight loss, healthy diet and exercise. (6) Hypothyroidism: - Continue Synthroid 200 mcg daily. - Most recent TSH was 6.46 - consider repeat TFTs in 3-4 weeks. (7) Obesity: - BMI 45.2 - Encourage weight loss and exercise. (8) Submucous leiomyoma of uterus: - Followed as outpatient. (9) Uses control: - Continue home medication. (10) DVT prophylaxis: - SCDs; hold Lovenox for procedure. Dispo: Med/surg; plan for lap carlyn this afternoon. Discharge likely on 11/18. Subjective Pt. is doing well. Nausea/vomiting, abd pain all resolved. Does have mild epigastric pain. Is having diarrhea over last few days, will send C. diff. Review of Systems Review of Systems: All systems reviewed & are unremarkable except as noted in HPI & below Constitutional: + fatigue and + weakness; no fever, no chills and no anorexia Respiratory: no cough, no dyspnea and no dyspnea on exertion Cardiovascular: no chest pain, no palpitations and no edema Gastrointestinal: + diarrhea/loose stools; no abdominal pain, no nausea, no vomiting and no constipation Genitourinary: no difficulty urinating Musculoskeletal: no back pain and no joint pain Integumentary: no non-healing lesions Physical Exam Physical Exam: General: Resting comfortably HEENT: NC/AT; PERRLA with EOMI; [place] conjunctiva, MMM. No erythema of posterior pharynx Neck: Supple and nontender Cardiac: RRR Lungs: CTA bilaterally Abdomen: Bowel normoactive X 4; TTP in epigastric region. Extremities: Warm. No edema present Neuro: No focal weakness Skin: No rash Results & Data ([facility]) Vital Signs (Past 12 Hours) Vital Signs Temp Pulse Resp BP Pulse Ox 11/17/19 11:01 37 C 67 18 175/110 H 11/17/19 08:40 36.7 C 68 16 136/86 96 Laboratory Results 11/17/19 11/17/19 11/16/19 Range/Units 05:12 05:12 Unknown WBC 8.74 (4.8-10.8) K/uL RBC 4.32 (4.2-5.4) M/uL Hgb 11.9 L (12.0-16.0) g/dL Hct 35.9 L (37-47) % MCV 83.1 (80-100) fL MCH 27.5 (25-34) pg MCHC 33.1 (32-36) g/dL RDW Std Deviation 44.9 (36.4-46.3) fL RDW Coeff of George 14.6 H (11.5-14.5) % Plt Count 243 (130-400) K/uL MPV 9.9 (7.4-10.4) fL Sodium 139 (136-145) mmol/L Potassium 3.9 (3.5-5.1) mmol/L Chloride 109 H (98-107) mmol/L Carbon Dioxide 26 (21-32) mmol/L Anion Gap 4.0 (3-11) BUN 10 (7-18) mg/dl Creatinine 0.81 (0.6-1.2) mg/dl Est Cr Clr Drug Dosing 93.9 ml/min Est GFR ( Amer) 100.2 Est GFR (Non-Af Amer) 86.5 BUN/Creatinine Ratio 12.2 (10-20) Glucose 110 H (70-99) mg/dl Calcium 8.6 (8.5-10.1) mg/dl Total Bilirubin 0.5 (0.2-1) mg/dl Direct Bilirubin 0.1 (0-0.2) mg/dl AST 88 H (15-37) U/L ALT 128 H (12-78) U/L Alkaline Phosphatase 135 H (45-117) U/L Total Protein 6.1 L (6.4-8.2) gm/dl Albumin 2.5 L (3.4-5.0) gm/dl Urine Test Negative (Negative) PG Care Time/CCT Total # of Minutes Spent Total Time Spent with Patient: Total time spent is greater than 50% in coordination of care (as documented) at patient's floor/unit and/or counseling patient: Coding Level of Care Code 30917 Subseq Hosp Care Lvl 2 Diagnoses Cholelithiasis K80.20 Epigastric pain R10.13 Liver enzyme elevation R74.8 Diarrhea R19.7 Dysmetabolic syndrome X E88.81 Hypothyroidism E03.9 Obesity E66.9 Submucous leiomyoma of uterus D25.0 Uses control Z78.9 DVT prophylaxis Z29.9
--- NOTE | 2019-11-17 13:05 | Operative Report ---
PG Post Operative Report Pre & Post Diagnosis Operation Date: 11/17/19 11:30 Pre-Op Diagnosis: SYMPTOMATIC CHOLELITHIASIS Post-Op Diagnosis: SYMPTOMATIC CHOLELITHIASIS I identified the patient and participated in the time-out.: Yes Procedure Operation Date: 11/17/19 11:30 Actual Procedures p Laparoscopic Cholecystectomy, Liver Biopsy(Not Applicable) - Sarwat Heredia DO Surgeon Sarwat Heredia DO Wood Heel Fitter Machine stevan Smith Estimated Blood Loss 5 Findings Consistent with Post-Op Diagnosis Specimens 1. gallbladder 2. liver bx Description of Procedure After informed consent was obtained the patient was taken to the operating room and placed in the supine position. After successful intubation the abdomen was sterilely prepped and draped in usual fashion. A periumbilical incision was made with an 11 blade scalpel and carried down through the soft tissue using electrocautery. The anterior rectus fascia was opened using electrocautery and 2 #0 Vicryl stay sutures were placed. The peritoneum was elevated with hemostats and incised under direct vision using Metzenbaum scissors. A finger sweep was performed and a 12 mm Whitten trocar was placed. The abdomen was insufflated to 18 mmHg. The laparoscope was inserted and the abdomen was examined in 360. No gross abnormalities other than some fatty infiltration of the liver ,were identified. A subxiphoid 5 mm port and 2 right upper quadrant 5 mm ports were placed under direct vision. The patient was placed in a reverse Trendelenburg position and slightly airplaned to the left. The gallbladder was grasped and elevated superiorly and laterally. A [place] dissector was used to take down adhesions around the neck of the gallbladder. The cystic duct was identified and skeletonized. It was clipped twice proximally and once distally and transected using a laparoscopic scissor. a third clip was also applied to the stump. In similar fashion the cystic artery was identified and skeletonized clipped and divided. The gallbladder was removed from the gallbladder fossa with electrocautery. It was placed into an Endo Catch bag. Next I used an BlaBlaCaratic Ari-Cut needle device to obtain 3 core biopsies of the right lobe of the liver. Bleeding was controlled using cautery. Thorough irrigation was performed. At the end of the procedure there was adequate hemostasis and no evidence of any bile leaks. A final look around the abdomen showed no other abnormalities. The gallbladder and trochars were all removed and the abdomen was desufflated. The fascia of the camera port was closed using 0 Vicryl in a adicjz-ry-ixnav fashion. All the wounds were irrigated and closed using 4-0 Monocryl. Marcaine was injected around them for postoperative analgesia and skin glue used as a dressing. The patient was awakened, extubated and transferred to recovery in stable condition. My physician's retail event and sales assistant was present throughout the entire case... helped with prepping the patient. With exposure for trocar placement, as well as retracted the gallbladder throughout the case and also assisted with wound closure and dressing placement. I attest to the content of the Intraoperative Record and any orders documented therein. Any exceptions are noted below.
[2019-11-17] MEDS: HYDROmorphone INJ 1 MG/ML SYRINGE IV PRN ×7 (13:08→13:48)
--- NOTE | 2019-11-17 13:52 | Anesthesiology Progress Note ---
Date of Service November 17, 2019 Anesthesia Post Procedure Vital Signs Vital Signs: Temp Pulse Pulse Pulse Resp BP Pulse Ox 11/17/19 13:45 72 18 150/84 H 98 11/17/19 13:35 76 14 170/92 H 95 11/17/19 13:25 71 22 155/89 H 95 11/17/19 13:15 77 17 154/98 H 99 11/17/19 13:05 73 20 148/89 H 98 11/17/19 12:56 36.3 C L 79 20 175/95 H 98 11/17/19 11:01 37 C 67 18 175/110 H 11/17/19 08:40 36.7 C 68 16 136/86 96 11/16/19 23:33 36.8 C 75 17 130/81 96 11/16/19 14:58 36.6 C 75 17 151/88 H 97 Pain Intensity Head: Pain Intensity: 5 Transfer of Care Handoff Completed per policy Notes Mental Status: alert / awake / arousable Patient Amnestic to Procedure: Yes Nausea / Vomiting: adequately controlled Pain: adequately controlled Airway Patency, RR, SpO2: stable & adequate BP & HR: stable & adequate Hydration State: stable & adequate Anesthetic Complications: no major complications apparent
[2019-11-17] MEDS ORDERED: MoRPHine SULFATE 4 MG/ML 1 ML CARP\\VIAL IV PRN (14:25)
[2019-11-17] MEDS ORDERED: MoRPHine SULFATE 2 MG/ML CARP IV PRN (14:25)
[2019-11-17] MEDS ORDERED: HYDROCODONE/ACETAMOPHEN 5/325MG TAB PO PRN ×2 (14:25)
[2019-11-17] MEDS: ONDANSETRON INJ 2 MG/ML 2 ML VIAL IV PRN ×2 (16:28→22:40)
[2019-11-18] MEDS: KETOROLAC TROMETHAMINE 15 MG/ML VIAL IV PRN ×3 (00:06→12:20)
[2019-11-18 05:16] LABS: Basophils # (auto) 0.02 K/uL (0-0.2); Basophils % (auto) 0.2 %; Eosinophils # (auto) 0.09 K/uL (0-0.5); Eosinophils % (auto) 0.9 %; Hematocrit (blood only) 33.8 % (37-47); Hemoglobin 11.2 g/dL (12.0-16.0); Immature Granulocytes # (auto) 0.03 K/uL (0.00-0.02); Immature Granulocytes % (auto) 0.3 %; Lymphocytes # (auto) 2.74 K/uL (1.2-3.4); Lymphocytes % (auto) 28.2 %; Mean Corpuscular Hemoglobin 27.2 pg (25-34); Mean Corpuscular Hgb Conc 33.1 g/dL (32-36); Mean Platelet Volume 9.9 fL (7.4-10.4); Monocytes # (auto) 0.56 K/uL (0.11-0.59); Monocytes % (auto) 5.8 %; Neutrophils # (auto) 6.29 K/uL (1.4-6.5); Neutrophils % (auto) 64.6 %; Platelet Count 233 K/uL (130-400); RDW Coefficient of Variation 14.4 % (11.5-14.5); RDW Standard Deviation 43.3 fL (36.4-46.3); Red Blood Count 4.12 M/uL (4.2-5.4); White Blood Count 9.73 K/uL (4.8-10.8)
[2019-11-18 05:47] LABS: Albumin Level 2.6 gm/dl (3.4-5.0); BUN Creatinine Ratio 6.9 (10-20); Bilirubin Direct 0.1 mg/dl (0-0.2); Calcium 8.5 mg/dl (8.5-10.1); Creatinine Clr Calc Pharmacy 97.5 ml/min; Est GFR (African American) 104.9; Est GFR (Non-African American) 90.5; Potassium 3.5 mmol/L (3.5-5.1)
[2019-11-18 05:50] LABS: Bilirubin,Total 0.5 mg/dl (0.2-1); Total Protein 6.3 gm/dl (6.4-8.2)
[2019-11-18] MEDS: LEVOTHYROXINE SODIUM 200 MCG TABLET PO SCH (06:13)
--- NOTE | 2019-11-18 07:21 | Anesthesiology Progress Note ---
Date of Service November 18, 2019 Anesthesia Post Procedure Vital Signs Vital Signs: Temp Pulse Pulse Pulse Pulse Resp BP 11/18/19 05:03 149/92 H 11/18/19 04:00 36.8 C 78 18 160/92 H 11/18/19 00:56 160/87 H 11/18/19 00:12 73 162/95 H 11/17/19 23:42 37.0 C 78 18 166/81 H 11/17/19 21:36 166/96 H 11/17/19 16:15 36.7 C 70 20 161/99 H 11/17/19 15:15 36.3 C L 76 17 155/88 H 11/17/19 14:15 36.6 C 76 16 150/86 H 11/17/19 13:55 37.1 C 76 15 147/81 H 11/17/19 13:45 72 18 150/84 H 11/17/19 13:35 76 14 170/92 H 11/17/19 13:25 71 22 155/89 H 11/17/19 13:15 77 17 154/98 H 11/17/19 13:05 73 20 148/89 H 11/17/19 12:56 36.3 C L 79 20 175/95 H 11/17/19 11:01 37 C 67 18 175/110 H 11/17/19 08:40 36.7 C 68 16 136/86 Pulse Ox 11/18/19 05:03 11/18/19 04:00 95 11/18/19 00:56 11/18/19 00:12 11/17/19 23:42 97 11/17/19 21:36 11/17/19 16:15 99 11/17/19 15:15 100 11/17/19 14:15 98 11/17/19 13:55 97 11/17/19 13:45 98 11/17/19 13:35 95 11/17/19 13:25 95 11/17/19 13:15 99 11/17/19 13:05 98 11/17/19 12:56 98 11/17/19 11:01 11/17/19 08:40 96 Pain Intensity Head: Pain Intensity: 7 Notes Mental Status: alert / awake / arousable and participated in evaluation Patient Amnestic to Procedure: Yes Nausea / Vomiting: adequately controlled Pain: adequately controlled Airway Patency, RR, SpO2: stable & adequate BP & HR: stable & adequate Hydration State: stable & adequate Anesthetic Complications: Pt Satisfied with anesthetic care
[2019-11-18] MEDS: LACTATED RINGER'S 1,000 ML IV SCH (08:09)
[2019-11-18] MEDS: PANTOprazole 40 MG TAB PO SCH (08:09)
--- NOTE | 2019-11-18 09:56 | Surgery Progress Note ---
Date of Service November 18, 2019 Assessment & Plan (1) Cholelithiasis: POD 1 lap carlyn seen with Dr. Heredia advance diet as meli d/c per primary later today or tomorrow as above. instructions given. f/u in 1-2 weeks. Subjective some umbilical incision pain, on clears Physical Exam Gastrointestinal (Abdomen): Inspection/Auscultation: + abdominal surgical incision (dry) Percussion/Palpation: abdomen soft Results & Data Vital Signs (Past 12 Hours) Vital Signs Temp Pulse Pulse Resp BP Pulse Ox 11/18/19 08:18 36.4 C L 70 16 155/91 H 98 11/18/19 05:03 149/92 H 11/18/19 04:00 36.8 C 78 18 160/92 H 95 11/18/19 00:56 160/87 H 11/18/19 00:12 73 162/95 H 11/17/19 23:42 37.0 C 78 18 166/81 H 97 PG Care Time/CCT Total # of Minutes Spent Total Time Spent with Patient: Total time spent is greater than 50% in coordination of care (as documented) at patient's floor/unit and/or counseling patient: Coding Level of Care Code None Diagnoses Cholelithiasis K80.20
--- NOTE | 2019-11-18 10:45 | XRay Report ---
XR KUB/Abdomen 1 view CLINICAL HISTORY: Abdominal Pain/ Post Op Ileus?/Obs? COMPARISON STUDY: No previous studies for comparison. FINDINGS: There are right upper quadrant surgical clips. There is gas present within nondilated colon ic and small bowel loops. There is no radiographic evidence of bowel obstruction. IMPRESSION: Nonobstructive bowel gas pattern. ACT 112: Negative or not required by law. Electronically signed by: Benoit Baker M.D. 11/18/2019 10:44 AM
[2019-11-18] MEDS ORDERED: POLYETHYLENE (MIRALAX) 17 GM PACK PO ONE (12:22)
--- NOTE | 2019-11-18 19:52 | Discharge Summary ---
Date of Service November 18, 2019 Admission HPI Per Admitting Provider 49 y/o female presented to the ED with post-prandial epigastric to right upper quadrant pain and associated nausea. She reports having had 6 similar episodes over the past 5 weeks. No F/C, chest pain, SOB, cough, dysuria, or vomiting. She does report intermittent diarrhea as well. Principal Diagnosis Cholelithiasis S/P Lap Greta Discharge Exam Constitutional WD/WN, vitals as above Eyes + anicteric sclerae ENMT Ears: no hearing impairment Neck trachea midline Respiratory normal respiratory effort, lungs clear to auscultation Cardiovascular RRR, no murmur, no edema Gastrointestinal (Abdomen) Inspection/Auscultation: normal bowel sounds Percussion/Palpation: + abdomen tender (incisional) and abdomen soft Musculoskeletal Head/Neck/Chest: normocephalic and head atraumatic Skin no rashes, warm and dry Neurologic moves all extremities Psychiatric A+Ox3, euthymic affect Discharge Data Allergies Allergy/AdvReac Type Severity Reaction Status Date / Time adhesive Allergy Unknown RED SKIN Verified 11/22/19 14:15 Sulfa (Sulfonamide Allergy Unknown ITCHY RASH Verified 11/22/19 14:15 Antibiotics) Consultations 11/15/19 22:09 ED Decision to Admit Stat 11/15/19 23:26 Consult General Surgery Routine Procedures Performed Operation Date: 11/17/19 11:30 Actual Procedures p Laparoscopic Cholecystectomy, (Not Applicable) - Sarwat Heredia DO s Liver Biopsy(Not Applicable) - Sarwat Heredia DO Ordered Studies 11/15/19 19:49 US gallbladder Stat 11/16/19 01:39 MR MRCP Routine Hospital Course (1) Cholelithiasis: - Gallbladder US with gallstones and sludge and mild dilatation of CBD at 8 mm. - MRCP with cholelithiasis, no evidence of cholecystitis or choledocolithiasis. - General surgery consulted - S/P Lap Greta on 11/17 - Initial use of Abx but D/Cd in-hospital - Will F/U with Gen Surg as outpatient (2) Epigastric pain: - Pt. c/o epigastric pain -- possibly referred from gallbladder vs. r elated to gastric ulcer? - Started Protonix 40 mg PO daily and will do a 14 day course - GI appointment obtained to consider EGD - has had epigastric pain as outpatient prior to gallbladder issues (3) Liver enzyme elevation: - Elevated AST, ALT and Alk phos on labs. Slightly increased post- operatively which to be expected from surgical intervention/biopsy - Clinically doing well - did perform KUB without signs of obstruction and moving bowels and passing gas this afternoon; will recheck CMP in 3 days to monitor for normalization of LFTs - Liver bx is pending - Gallbladder US showed hepatic steatosis. (4) Dysmetabolic syndrome X: - Encourage weight loss, healthy diet and exercise. (5) Hypothyroidism: - Continue Synthroid 200 mcg daily. - Most recent TSH was 6.46 - consider repeat TFTs in 3-4 weeks (6) Obesity: - BMI 45.2 - Encourage weight loss and exercise. (7) Submucous leiomyoma of uterus: - Followed as outpatient. (8) Uses control: - Continue home medication. Total Time Total Time Spent Total Time Spent (In Minutes): Greater than 30 minutes Discharge Plan Discharge Items Patient Disposition: Home - Self-Care Reason For Visit: SYMPTOMATIC CHOLELITHIASIS Discharge Diagnosis: laparoscopic cholecystectomy Activity: Per Instructions section Lifting: No more than 10 pounds Bathing Comment: may shower starting 11/18/19. no soaking in tubs Exercise/Sports: Wait until after follow-up appointment Non-emergency contact: Primary Care Provider and Surgeon Call non-emergency contact if: you have any medication questions, your symptoms worsen, your pain is not controlled, you have a fever, your temperature is above 101.5, your wound has increased redness, your wound has increased drainage and your wound pain has increased Follow-up/Referrals: Tien Hagen MD [Primary Care Provider] - 11/22/19 2:15 pm (Please, follow up at Dr. Bledsoe's office with her associate, Kasia Fang PA-C, on ThursdayNovember 22 at 2:15 pm. *If you need to change this appointment, call their office at [phone].) Sarwat Heredia, [Surgeon] - (Please call to schedule follow up in clinic within 2 weeks) Jaspal Esparza MD [Physician] - 12/01/19 3:10 pm (Please, follow up at [facility] Office with Dr. Esparza on December 01 at 3:10 pm. *The office is located at [address] [facility] in [facility]). If you need to change this appointment, call the office at [phone]. THIS IS REGARDING YOUR SYMPTOMS THAT SUGGEST A POSSIBLE GASTRIC ULCER.) Diet: Low Fat Ambulatory Orders: Comprehensive Metabolic Panel (Routine) Timeframe: 3 Days Location: Determined by Patient Ordered By: Marie Smith Attending Provider Instructions: Gallstones with Gallbladder Removal and Liver Biopsy: - Your liver biopsy is still pending but this should be back in time to discuss with your surgeon on follow-up. - Recommend to keep a bland easy to digest diet for the next couple days. As discussed try to avoid high fat foods as this can causes some diarrhea when you no longer have a gallbladder. In a couple weeks you can slowly add some fatty foods in your diet if desired. - We do have an appointment with a GI doctor arranged. This way they can follow to see if further testing needs to be down (like a scope) to rule out stomach ulcers given your epigastric pain. - For now recommend to continue daily Protonix to help reduce stomach acids and see if this helps. Will do this for 14 days - A prescription was sent over to your pharmacy for pain control by your surgeon. Pending Studies at Discharge: Yes Studies:: pathology - liver Stand-Alone Forms: My [facility], Opioid Pain Management, Smoking Cessation Medications and DC Order Prescriptions: New pantoprazole 40 mg Tablet,Delayed Release (Dr/Ec) 40 mg PO QAM 14 Days Qty: 14 RF: 0 Continued desogestrel-ethinyl estradiol [Reclipsen (28)] 0.15-0.03 mg tablet 1 tab PO DAILY Qty: 84 RF: 0 levothyroxine [Synthroid] 200 mcg tablet 200 mcg PO DAILY Qty: 90 RF: 0 No Action ibuprofen 200 mg Tablet 400 mg PO Q6H PRN (Reason: Pain) RF: 0 hydrocodone-acetaminophen [Spooner] 5-325 mg tablet 1 - 2 tab PO UD PRN (Reason: Pain) RF: 0 Discharge Orders: Discharge Order (Routine); Ordered 11/18/19 Ordered By: Marie Fleming Admission Data Admit Date/Time: 11/16/19 14:06 Attending Provider: Sampson Qiu Admit Provider: Tien Gomez Primary Care Provider: Tien Hagen V. Other Providers: Tien Gomez ; Sarwat Heredia Other Interventions: Discharge Summary Assessment (RN) Last Done: 11/18/19 16:15 DC Date/Time DO NOT enter until pt leaves facility: 11/18/19 16:40 Supervising Physician Co-Signing Physician Notes Patient was seen and examined by me personally. I performed a brief history and physical exam. I reviewed the chart, the orders and discussed the discharge plan in detail with Marie GIL . I read this discharge summary and agree with its contents to entirety. Patient had cholecystectomy on 11/17. Patient will f/u with Gen surgery as an outpatient. Coding Level of Care Code D/C Day Management >30 mins Diagnoses Cholelithiasis K80.20 Epigastric pain R10.13 Liver enzyme elevation R74.8 Dysmetabolic syndrome X E88.81 Hypothyroidism E03.9 Obesity E66.9 Submucous leiomyoma of uterus D25.0 Uses control Z78.9
== END 2019-11-18 16:40 | disposition home or self-care (01) | DRG 418 ==
LOC: 3E 17:22 → ED 17:22 → OBSVTOIN 22:23 → SUATTDRO 22:23 → 3E 23:08